=== PATIENT | male | born 1995 | race Caucasian/White ===

== ENCOUNTER → 2020-11-12 | Outpatient (CLI) | payer OTHER ==
[2020-11-14 00:10] LABS: CHLAMYDIA TRACHOMATIS, NAA Positive (Negative)
== END | disposition home or self-care (01) ==
LOC: LAB 09:30 → LAB SHORT 09:30
PROVIDERS: Physician Assistant
DX: R30.0 Dysuria (principal)
CPT/HCPCS: 87491; 87591

== ENCOUNTER → 2020-12-10 | Outpatient (CLI) | payer OTHER ==
[2020-12-12 04:10] LABS: CHLAMYDIA TRACHOMATIS, NAA Negative (Negative)
== END | disposition home or self-care (01) ==
LOC: LAB SHORT 12:34 → LAB 12:34
PROVIDERS: Physician Assistant
DX: N34.1 Nonspecific urethritis (principal)
CPT/HCPCS: 87491; 87591

== ENCOUNTER → 2021-04-13 | Outpatient (CLI) | payer SELFPAY ==
[2021-04-13 12:27] LABS: BASOPHILS ABSOLUTE AUTO 0.02 K/mm3 (0.00-0.23); BASOPHILS PERCENT AUTO 0 % (0-2); EOSINOPHILS ABSOLUTE AUTO 0.01 K/mm3 (0.00-0.68); EOSINOPHILS PERCENT AUTO 0 % (0-6); Hematocrit 43.7 % (37.0-53.0); IMMATURE GRAN ABSOLUTE AUTO 0.02 K/mm3 (0.00-0.10); IMMATURE GRAN PERCENT AUTO 0 % (0-1); LYMPHOCYTES ABSOLUTE AUTO 1.36 K/mm3 (0.84-5.20); LYMPHOCYTES PERCENT AUTO 16 % (21-46); MONOCYTES ABSOLUTE AUTO 0.57 K/mm3 (0.16-1.47); MONOCYTES PERCENT AUTO 7 % (4-13); Mean Corpuscular HGB 32.5 pg (26.0-34.0); Mean Corpuscular HGB Conc 36.6 g/dL (31.5-36.5); Mean Corpuscular Volume 89 fL (80-100); Mean Platelet Volume 9.4 fL (9.1-12.4); NEUTROPHILS PERCENT AUTO 77 % (41-73); Platelet Count 256 K/mm3 (150-400); RDW Coefficient Variation 11.6 % (11.7-14.2); RDW Standard Deviation 37.2 fL (35.1-46.3); Red Blood Cell Count 4.93 M/mm3 (4.30-5.90); White Blood Cell Count 8.68 K/mm3 (4.00-11.30)
[2021-04-13 12:34] LABS: Alanine Aminotransfer (ALT/SGP 29 U/L (12-78); Albumin, Blood 4.2 g/dL (3.4-5.0); Albumin/Globulin Ratio 1.4 (0.8-1.8); Alk Phos 113 U/L (40-126); Anion Gap 14 mmol/L (6-16); Aspartate Aminotrans (AST/SGOT 22 U/L (12-37); Bilirubin, Total 0.4 mg/dL (0.1-1.0); Blood Urea Nitrogen 13 mg/dL (8-24); Bun/Creatinine Ratio 15.3 (12.0-20.0); CO2, Blood 24 mmol/L (21-32); Calcium, Blood 9.7 mg/dL (8.5-10.1); Chloride, Blood 106 mmol/L (98-108); Creatinine, Blood 0.85 mg/dL (0.60-1.20); Glomerular Filtration Rate >60 (60-); Glucose, Blood 100 mg/dL (70-99); Potassium, Blood 3.5 mmol/L (3.5-5.5); Sodium, Blood 144 mmol/L (136-145); Total Protein, Blood 7.2 g/dL (6.4-8.2)
== END | disposition home or self-care (01) ==
LOC: LAB SHORT 12:12
PROVIDERS: Physician Assistant
DX: R10.9 Unspecified abdominal pain (principal)
CPT/HCPCS: 80053; 83690; 85025

== ENCOUNTER → 2022-09-01 | Outpatient (CLI) | payer OTHER ==
[2022-09-05 18:07] LABS: CHLAMYDIA BY NAA Negative (Negative); GONOCOCCUS BY NAA Negative (Negative); TRICH VAG BY NAA Negative (Negative)
== END | disposition home or self-care (01) ==
LOC: LAB SHORT 13:48 → LAB 13:48
PROVIDERS: Emergency Medicine
DX: Z72.51 High risk heterosexual behavior (principal)
CPT/HCPCS: 87491; 87591; 87661